=== PATIENT | female | born 1950 | race Hispanic/Latino ===

== ENCOUNTER 2017-07-15 23:13 | Observation (INO) | payer SELFPAY ==
[2017-07-16 00:20] VITALS: BMI 38.0
[2017-07-16] MEDS ORDERED: Ondansetron ODT 4 MG TAB PO PRN (00:58)
[2017-07-16] MEDS ORDERED: Nitroglycerin 0.4 MG TAB (25 Tab Bottle) PO PRN (01:01)
[2017-07-16] MEDS ORDERED: HumaLOG 300 UNITS/3 ML VIAL SC PRN (01:08)
[2017-07-16] MEDS ORDERED: Dextrose 50% Abboject 50 ML SYRINGE SLOW IVP PRN (01:08)
[2017-07-16] MEDS ORDERED: Dextrose 5% in Water 1,000 ML IV PRN (01:08)
[2017-07-16] MEDS ORDERED: Aspirin 325 MG TAB PO SCH ×2 (02:00→08:00)
[2017-07-16] MEDS ORDERED: Amoxicillin/Potassium Clav 875 MG TAB PO SCH ×2 (02:00→09:00)
[2017-07-16 02:27] LABS: Troponin I Less than 0.010 ng/mL (< 0.028)
[2017-07-16] MEDS: Acetaminophen 325 MG TAB PO PRN ×2 (04:15→12:52)
[2017-07-16 05:28] LABS: #Eosinphils 0.4 thou/uL (0.0-0.7); #Lymphocytes 1.5 thou/uL (1.20-3.40); #Monocytes 0.7 thou/uL (0.11-0.59); #Neutrophils 5.6 thou/uL (1.40-6.50); %Basophils 0.2 % (0.0-1.0); %Eosinophils 5.1 % (0.0-10.0); %Lymphocytes 18.6 % (21.0-51.0); %Monocytes 8.1 % (0.0-10.0); Hemoglobin 11.9 g/dL (12.0-16.0); Mean Corpuscular HGB CONC 32.2 g/dL (32.0-36.0); Mean Corpuscular Hemoglobin 27.6 pg (27.0-31.0); Mean Corpuscular Volume 85.5 fl (81.0-99.0); Mean Platelet Volume 7.6 fL (7.4-10.4); Platelet Count 232 thou/uL (130-400); RBC Distribution Width 13.2 % (11.5-14.5); Red Blood Cell (RBC) Count 4.32 mill/uL (4.20-5.40); White Blood Cell (WBC) Count 8.3 thou/uL (4.8-10.8)
[2017-07-16 05:57] LABS: Anion Gap 10 mmol/L (10-20); BUN (Urea Nitrogen) 10 mg/dL (9.8-20.1); Calc. Creatinine Clearance 109 mL/min (70-130); Calcium 9.1 mg/dL (7.8-10.44); Carbon Dioxide 29 mmol/L (23-31); Cardiac Risk 2.9 (Less than 4.5); Chloride 103 mmol/L (98-107); Cholesterol 98 mg/dl (< 200 Desired); Estimated GFR-MDRD 74; Glucose 126 mg/dL (80-115); HDL Cholesterol 34 mg/dL (>60 Neg Risk); LDL Cholesterol, Calculated 41 mg/dL; Magnesium 1.8 mg/dL (1.6-2.6); Phosphorus 3.3 mg/dL (2.3-4.7); Potassium 3.7 mmol/L (3.5-5.1); Sodium 138 mmol/L (136-145); Triglycerides 114 mg/dL (Less than 150)
--- NOTE | 2017-07-16 06:34 | HP-2 ---
CODE STATUS: FULL. PRIMARY CARE PHYSICIAN: Farheen gotti. ATTENDING: Dr. Lidia Arce RESIDENT: Dr. Leyla Neal CHIEF COMPLAINT: Chest pain. HISTORY OF PRESENT ILLNESS: This is a 66-year-old female that presented to an outside ED with the complaint of chest pressure located over the left chest and radiating up into the jaw which has worsened throughout the day. The patient endorses associated nausea without emesis. Additionally, the patient has had cough, congestion, and sinus pressure for the past week. These symptoms have worsened over that time. The patient states that the pain in the chest is persistent, but she did experience some relief with nitroglycerin. The patient denies palpitations, edema, shortness of breath, or diaphoresis. Additionally, the patient states that the chest pain is worsened with cough. In the ED, the patient was given nitroglycerin sublingual. PAST MEDICAL HISTORY: 1. Hypertension. 2. Hyperlipidemia. 3. Diabetes mellitus type 2. 4. Arthritis. PAST SURGICAL HISTORY: 1. Cholecystectomy. 2. Breast reduction. 3. D&C. ALLERGIES: No known drug allergies. MEDICATIONS: 1. Aspirin 325 mg p.o. daily. 2. Clonidine 0.1 mg p.o. p.r.n. 3. Citalopram oxalate 10 mg p.o. daily. 4. Lorazepam 0.5 mg p.o. p.r.n. 5. Metformin 500 mg b.i.d. 6. Nortriptyline 10 mg p.o. daily. 7. Ramipril 10 mg p.o. daily. 8. Rosuvastatin calcium 20 mg p.o. daily. FAMILY HISTORY: Noncontributory. SOCIAL HISTORY: The patient was a former smoker. She states that she smoked socially, but quit 40 years ago. She denies any alcohol or drug use. REVIEW OF SYSTEMS: Twelve point review of systems was performed and all are negative except as listed in the HPI and as indicated below. The patient endorses chills, night sweats and fatigue over the last week. Of note, the patient is from [place] and since arriving to the on 05/19/2017, she has noted an unprovoked weight loss from 240 pounds to 214 pounds. Additionally, she has had some trouble sleeping due to her recent congestion. The patient endorses a cough and some associated shortness of breath. Additionally, she has chest pain which is worsened with cough, particularly in the left ribs. The patient has had some nausea, but no associated vomiting. She had one episode of diarrhea. The patient has diffuse musculoskeletal pain secondary to arthritis. Additionally, she does endorse a history of anxiety and depression. PHYSICAL EXAMINATION: VITAL SIGNS: Blood pressure 132/82, pulse 90, respiratory rate 17, pulse ox 96 % on room air. Current weight 100 kilograms. GENERAL: The patient is alert and oriented x3, no acute distress, well- developed, well-nourished, obese, appropriately interactive. EYES: Pupils equally round, reactive to light and accommodation. Extraocular muscle intact. Conjunctivae within normal limits. ENT: Nasal mucosa within normal limits. Oropharynx within normal limits. The patient does have tenderness over the maxillary and frontal sinuses. NECK: Supple, without lymphadenopathy or thyromegaly. CARDIOVASCULAR: Regular rate and rhythm. No murmurs or gallops. Radial and pedal pulses 2+. RESPIRATORY: Normal effort, no retractions, clear to auscultation bilaterally. SKIN: Warm and dry. No cyanosis or lesion. ABDOMEN: Soft, tender in the left upper quadrant. Bowel sounds are positive in all 4 quadrants. No mass or distention. EXTREMITIES: No clubbing, cyanosis or edema. MUSCULOSKELETAL: Structure within normal limits. Tone within normal limits. The patient has full range of motion. The patient was tender to palpation of her left rib cage. NEUROLOGIC: No focal deficits. Sensation within normal limits. Cranial nerves II-XII intact. GCS 15. PSYCHIATRIC: Appropriate. LABORATORY DATA: Laboratory findings obtained from outside ER did show negative influenza A and B. Troponin was negative. EKG showed normal sinus rhythm. ASSESSMENT AND PLAN: This is a 66-year-old female with past medical history of hypertension, hyperlipidemia, diabetes mellitus type 2, who presents with chest pain. 1. Atypical chest pain. The patient has several risk factors that warrant further workup. Her heart score is approximately 4 based on risk factors and age. The pain is reproducible. We will plan to stress the patient in the a.m. Fasting lipid panel, magnesium, phosphate and BMP are pending. We will continue to trend troponin. Of note, this could be secondary to musculoskeletal tenderness from coughing associated with viral illness/ sinusitis. 2. Acute bacterial sinusitis. The patient has been symptomatic for greater than a week with associated maxillary and frontal sinus tenderness. We will start the patient on Augmentin 875 mg p.o. b.i.d. x7 days. Will have fluticasone nasal spray for patient to use to help with symptoms. Also, recommend nasal irrigation per patient preference. 3. Hypertension. We will continue home medications. 4. Hyperlipidemia. Continue home medications. 5. Diabetes mellitus type 2. The patient will be placed in the hospital with sliding scale insulin. We will hold metformin until patient is done with nuclear stress test, restart after that time. 6. Anxiety. The patient has lorazepam p.r.n. for anxiety. 7. Deep venous thrombosis prophylaxis, SCDs. DISPOSITION/LENGTH OF HOSPITAL STAY: 1 day. Symptomatic medications will be provided. History and physical exam as well as management discussed with Dr. Lidia Arce. TOMÁS
[2017-07-16] MEDS ORDERED: Fluticasone Propionate Nasal Spray 16 gm Bottle NASAL SCH (09:00)
[2017-07-16] MEDS ORDERED: Ramipril 5 MG CAP PO SCH (09:00)
[2017-07-16] MEDS ORDERED: cloNIDine 0.1 MG TAB PO SCH (09:00)
[2017-07-16] MEDS ORDERED: Escitalopram Oxalate 10 mg Tablet PO SCH (09:00)
[2017-07-16 10:48] VITALS: TEMP 98.2
[2017-07-16 12:51] VITALS: BP 127/68
--- NOTE | 2017-07-16 13:23 | NM ---
NUCLEAR MEDICINE MYOCARDIAL PERFUSION EVALUATION: CLINICAL HISTORY: 66-year-old female with chest pain. Reference stress EKG portion of the exam through the division of cardiology for further details. RADIOPHARMACEUTICAL: 31 mCi technetium-99m sestamibi IV. FINDINGS: Stress imaging performed, which reveals no significant perfusion defect of the left ventricular gonzalez . Gated imaging performed, which reveals wall motion and contractility with calculated LVEF at 60%. IMPRESSION: 1. Normal stress myocardial perfusion, without evidence of ischemia or scar. 2. Normal left ventricular systolic function. POS: RUMA
[2017-07-16] MEDS ORDERED: ADENOSINE 60 MG/20 ML VIAL ONE (13:30)
--- NOTE | 2017-07-17 12:25 | DIS-2 ---
DATE OF ADMISSION: 07/16/2017 DATE OF DISCHARGE: 07/16/2017 ADMITTING ATTENDING: Dr. Veronica Perez. DISCHARGE ATTENDING: Dr. Lidia Arce. RESIDENT: Dr. Reuben Salazar. CONSULTS: None. PROCEDURES: Nuclear stress test. Impression: Normal stress myocardial perfusion without evidence o f acute ischemia or scar. Normal left ventricular systolic function. Left ventricular ejection frac tion at 60%. PRIMARY DIAGNOSIS: Atypical chest pain, likely from costochondritis. SECONDARY DIAGNOSES: 1. Acute bacterial sinusitis. 2. Hypertension. 3. Hyperlipidemia. 4. Diabetes, type 2. 5. Anxiety. DISCHARGE MEDICATIONS: 1. Augmentin 875 mg every 12 hours. 2. Tessalon Perles 100 mg p.o. t.i.d. as needed. 3. Metformin 1000 mg b.i.d. 4. Clonidine 0.1 mg p.o. daily. 5. Lorazepam 0.5 mg p.o. daily as needed. 6. Ramipril 10 mg p.o. daily. 7. Aspirin 325 mg p.o. daily. 8. Crestor 20 mg p.o. daily. 9. Lexapro 10 mg p.o. daily. 10. Nortriptyline 10 mg p.o. daily. HISTORY OF PRESENT ILLNESS AND HOSPITAL COURSE: This is a 66-year-old female who presents to an [facility] ED and then transferred to [facility] with complaints of chest pain located ove r the left chest and radiating into the jaw that has been worsened for the past 2 days. She associat es it with nausea without emesis. She says that she has been having cough, cold, and congestion for about 7 weeks now and that has worsened in the past week. She states that her pain in her chest is p ersistent, but is worse with coughing and was worse with palpation over her chest wall, reproducing t he same type of pain. She was admitted for cardiac workup. Her troponins were negative x3. Chest x -ray did not find any abnormalities. Flu swabs were negative. EKG showed normal sinus rhythm. She received a cardiac stress test. The results of that are as above. In light of the normal test resul ts, her long history of cold, cough, and congestion, and with pain worsening with cough and reproduci ble with palpation, her chest pain is likely due to costochondritis from coughing. She was prescribe kavin Barclay for that, and as her cold symptom has been going on for over 2 weeks, she was presc ribed Augmentin for possible sinusitis. On day of discharge, the patient was not having any other symptoms. DISPOSITION: Stable. DISCHARGE INSTRUCTIONS: 1. Location: To home. 2. Diet: Heart healthy diabetic diet. 3. Activity: As tolerated. 4. Followup: Follow up with the patient's PCP back in [place].
--- NOTE | 2017-07-24 12:46 | STRESS ---
Acquisition Time: 2017-07-16 10:56:46 Total Exercise Time: 00:04:00 Test Indications: CHEST PAIN Medications: Protocol: ADENOSINE Max HR: 115 BPM 74% of Pred: 154 BPM Max BP: 120/076 mmHG Max Work Load: 1.0 METS RESTING ECG: NORMAL SINUS RHYTHM AT 90 BPM WITH PAC'S SYMPTOMS: CHEST PAIN; DYSPNEA ON EXERTION NORMAL BP RESPONSE ECTOPY: NONE ECG STRESS: NO SIGNIFICANT CHANGES INTERPRETATION: AWAIT NUCLEAR IMAGES FOR DEFINITIVE DIAGNOSIS Confirmed by ZOE LOUIE ([id number]), retail sales associate seasonal MICHELL SOTO ([id number]) on 07/24/2017 12:45:49 PM Referred By: Gissell JIMENEZ Confirmed By:ZOE LOUIE
== END 2017-07-16 16:01 | disposition home or self-care (01) ==
LOC: 2NO 23:13 → INTOOBSV 23:13
PROVIDERS: ADMIT Family Medicine; ATTEND Family Medicine
DX: R07.89 Other chest pain (principal); B96.89 Other specified bacterial agents as the cause of diseases classified elsewhere; I10 Essential (primary) hypertension; E78.5 Hyperlipidemia, unspecified; E11.9 Type 2 diabetes mellitus without complications; F41.9 Anxiety disorder, unspecified; R11.0 Nausea; M19.90 Unspecified osteoarthritis, unspecified site; J01.00 Acute maxillary sinusitis, unspecified; J01.10 Acute frontal sinusitis, unspecified; Z79.84 Long term (current) use of oral hypoglycemic drugs; Z79.82 Long term (current) use of aspirin; Z79.899 Other long term (current) drug therapy; Z90.49 Acquired absence of other specified parts of digestive tract; Z98.890 Other specified postprocedural states; Z87.891 Personal history of nicotine dependence
CPT/HCPCS: 36415; 36416; 78452; 80048; 80061; 83735; 84100; 84443; 84484; 85025; 90471; 90732; 93017; 94760; A9500; G0009; G0378; J0153

== ENCOUNTER 2018-05-15 18:01 | Emergency (ER) | payer SELFPAY ==
[2018-05-15] MEDS ORDERED: Ibuprofen 200 MG TAB ONE (18:57)
[2018-05-15] MEDS ORDERED: Acetaminophen 325 MG TAB ONE (19:17)
== END 2018-05-15 19:39 | disposition home or self-care (01) ==
LOC: ERS 18:01
DX: S16.1XXA Strain of muscle, fascia and tendon at neck level, initial encounter (principal); I10 Essential (primary) hypertension; E11.9 Type 2 diabetes mellitus without complications; F41.9 Anxiety disorder, unspecified; F32.9 Major depressive disorder, single episode, unspecified; V43.62XA Car passenger injured in collision with other type car in traffic accident, initial encounter
CPT/HCPCS: 99283

== ENCOUNTER 2022-04-03 16:51 | Emergency (ER) | payer SELFPAY ==
[~2022-04-03 16:51] MED LIST: Iopamidol-370 76% 500 ML 1 ML ONE
[2022-04-03 17:34] LABS: #Basophils 0.1 thou/uL (0.0-0.2); #Eosinphils 0.6 thou/uL (0.0-0.7); #Lymphocytes 1.6 thou/uL (1.20-3.40); #Monocytes 0.5 thou/uL (0.11-0.59); #Neutrophils 6.1 thou/uL (1.40-6.50); %Basophils 0.6 % (0.0-1.0); %Eosinophils 7.2 % (0.0-10.0); %Lymphocytes 17.7 % (21.0-51.0); %Monocytes 5.1 % (0.0-10.0); %Neutrophils 69.4 % (42.0-75.0); Hemoglobin 13.6 g/dL (12.0-16.0); Mean Corpuscular HGB CONC 32.9 g/dL (32.0-36.0); Mean Corpuscular Hemoglobin 28.7 pg (27.0-31.0); Mean Platelet Volume 7.4 fL (7.4-10.4); Platelet Count 283 thou/uL (130-400); RBC Distribution Width 12.8 % (11.5-14.5); Red Blood Cell (RBC) Count 4.74 mill/uL (4.20-5.40); White Blood Cell (WBC) Count 8.8 thou/uL (4.8-10.8)
[2022-04-03 18:02] LABS: ALT (SGPT) 12 U/L (8-55); AST (SGOT) 12 U/L (5-34); Albumin 4.4 g/dL (3.4-4.8); Alkaline Phosphatase 76 U/L (40-110); Anion Gap 16 mmol/L (10-20); BUN (Urea Nitrogen) 14 mg/dL (9.8-20.1); Bilirubin, Total 0.6 mg/dL (0.2-1.2); Calc. Creatinine Clearance 0 mL/min (70-130); Calcium 9.3 mg/dL (7.8-10.44); Carbon Dioxide 20 mmol/L (23-31); Chloride 104 mmol/L (98-107); Estimated GFR 95; Globulin 2.8 g/dL (2.4-3.5); Glucose 121 mg/dL (83-110); Lipase 27 U/L (8-78); Potassium 4.2 mmol/L (3.5-5.1); Protein, Total 7.2 g/dL (5.8-8.1); Sodium 136 mmol/L (136-145)
[2022-04-03] MEDS ORDERED: Lidocaine Viscous Sol 2% 15 ml UD Cup ONE (20:15)
[2022-04-03] MEDS ORDERED: Milk Of Magnesia 30 ML UDCUP ONE (20:15)
[2022-04-03] MEDS ORDERED: Mag-Al 1200 mg/1200 mg/30 ML UDCUP ONE (20:16)
[2022-04-03] MEDS ORDERED: Acetaminophen 500 MG TAB ONE (21:09)
== END 2022-04-03 22:24 | disposition home or self-care (01) ==
LOC: ERS 16:51
DX: N28.89 Other specified disorders of kidney and ureter (principal); E11.9 Type 2 diabetes mellitus without complications; I10 Essential (primary) hypertension
CPT/HCPCS: 36415; 74177; 80053; 83690; 84484; 85025; 93005; Q9967

== ENCOUNTER 2022-07-30 02:14 | Emergency (ER) | payer SELFPAY ==
[2022-07-30] MEDS ORDERED: Aspirin Chewable 81 MG TAB ONE (02:50)
[2022-07-30] MEDS ORDERED: LORazepam 2 MG/ML SYR.(CARPUJECT) ONE (03:01)
[2022-07-30] MEDS ORDERED: Ketorolac Tromethamine 30 MG/ML VIAL ONE (03:01)
[2022-07-30 03:14] LABS: #Basophils 0.1 thou/uL (0.0-0.2); #Eosinphils 1.1 thou/uL (0.0-0.7); #Lymphocytes 2.1 thou/uL (1.20-3.40); #Monocytes 0.5 thou/uL (0.11-0.59); #Neutrophils 5.6 thou/uL (1.40-6.50); %Basophils 0.9 % (0.0-1.0); %Monocytes 5.3 % (0.0-10.0); %Neutrophils 59.8 % (42.0-75.0); Hemoglobin 12.7 g/dL (12.0-16.0); Mean Corpuscular Hemoglobin 28.8 pg (27.0-31.0); Mean Corpuscular Volume 87.2 fl (78.0-98.0); Mean Platelet Volume 7.7 fL (7.4-10.4); Platelet Count 265 10x3/uL (130-400); RBC Distribution Width 12.6 % (11.5-14.5); Red Blood Cell (RBC) Count 4.43 mill/uL (4.20-5.40); White Blood Cell (WBC) Count 9.4 10x3/uL (4.8-10.8)
[2022-07-30 03:37] LABS: ALT (SGPT) Less than 7 U/L (8-55); AST (SGOT) 12 U/L (5-34); Albumin 3.9 g/dL (3.4-4.8); Alkaline Phosphatase 62 U/L (40-110); Anion Gap 12 mmol/L (10-20); BUN (Urea Nitrogen) 15 mg/dL (9.8-20.1); Bilirubin, Total 0.2 mg/dL (0.2-1.2); Calc. Creatinine Clearance 0 mL/min (70-130); Calcium 9.4 mg/dL (7.8-10.44); Carbon Dioxide 25 mmol/L (23-31); Chloride 104 mmol/L (98-107); Estimated GFR 92; Globulin 2.9 g/dL (2.4-3.5); Glucose 122 mg/dL (83-110); Lipase 40 U/L (8-78); Potassium 4.2 mmol/L (3.5-5.1); Protein, Total 6.8 g/dL (5.8-8.1); Sodium 137 mmol/L (136-145)
[2022-07-30 04:20] LABS: Bacteria/HPF None Seen HPF (None Seen); Bilirubin Negative (Negative); Blood, Urine Negative (Negative); Clarity Clear (Clear); Glucose, Urine (Dipstick) Normal (Negative); Ketone, Urine Negative (Negative); Leukocyte 250 Leu/uL (Negative); Nitrite Negative (Negative); Protein, Urine (Dipstick) Negative (Neg-Trace); RBC/HPF None Seen HPF (0-3); Specific Gravity, Urine 1.007 (1.002-1.036); Squamous Epithelial None Seen HPF (0-3); Urobilinogen Normal mg/dL (Less than 2); WBC/HPF 0-3 HPF (0-3)
[2022-07-30 05:45] LABS: Troponin I Less than 0.010 ng/mL (< 0.028)
== END 2022-07-30 07:12 | disposition home or self-care (01) ==
LOC: ERS 02:14
DX: R07.89 Other chest pain (principal); I10 Essential (primary) hypertension; E11.9 Type 2 diabetes mellitus without complications; Z79.82 Long term (current) use of aspirin; Z79.84 Long term (current) use of oral hypoglycemic drugs; Z79.899 Other long term (current) drug therapy
CPT/HCPCS: 36415; 71045; 80053; 81003; 81015; 83690; 83880; 84484; 85025; 93005; 96374; 96375; J1885; J2060

== ENCOUNTER 2023-03-20 12:21 | Inpatient (IN) | payer MEDICAID, SELFPAY ==
[2023-03-20 13:58] LABS: #Basophils 0.1 thou/uL (0.0-0.2); #Eosinphils 0.8 thou/uL (0.0-0.7); #Monocytes 0.5 thou/uL (0.11-0.59); #Neutrophils 4.7 thou/uL (1.40-6.50); %Basophils 1.1 % (0.0-1.0); %Eosinophils 10.3 % (0.0-10.0); %Lymphocytes 22.8 % (21.0-51.0); %Monocytes 6.4 % (0.0-10.0); %Neutrophils 59.1 % (42.0-75.0); Hematocrit 39.5 % (36.0-47.0); Hemoglobin 12.7 g/dL (12.0-16.0); Mean Corpuscular HGB CONC 32.2 g/dL (32.0-36.0); Mean Platelet Volume 9.8 fL (7.4-10.4); Platelet Count 268 10x3/uL (130-400); RBC Distribution Width 14.1 % (11.5-14.5)
[2023-03-20 14:07] LABS: Bacteria/HPF None Seen HPF (None Seen); Bilirubin Negative (Negative); Blood, Urine Negative (Negative); CAUTI Indications for Culture Pelvic or flank pain; Clarity Clear (Clear); Glucose, Urine (Dipstick) Normal (Negative); Ketone, Urine Negative (Negative); Leukocyte 75 Leu/uL (Negative); Nitrite Negative (Negative); Protein, Urine (Dipstick) Negative (Neg-Trace); RBC/HPF 0-3 HPF (0-3); Specific Gravity, Urine 1.023 (1.002-1.036); Squamous Epithelial 0-3 HPF (0-3); Urobilinogen Normal mg/dL (Less than 2); WBC/HPF 0-3 HPF (0-3)
[2023-03-20 14:14] LABS: Urine Culture Reflex No No
[2023-03-20 14:25] LABS: ALT (SGPT) 12 U/L (8-55); AST (SGOT) 14 U/L (5-34); Albumin 4.1 g/dL (3.4-4.8); Alkaline Phosphatase 74 U/L (40-110); Anion Gap 12 mmol/L (10-20); BUN (Urea Nitrogen) 18 mg/dL (9.8-20.1); Bilirubin, Total 0.3 mg/dL (0.2-1.2); Calc. Creatinine Clearance 0 mL/min (70-130); Carbon Dioxide 26 mmol/L (23-31); Chloride 104 mmol/L (98-107); Estimated GFR 95; Glucose 134 mg/dL (83-110); Lipase 25 U/L (8-78); Potassium 4.3 mmol/L (3.5-5.1); Protein, Total 7.1 g/dL (5.8-8.1); Sodium 138 mmol/L (136-145)
[2023-03-20 14:29] LABS: Troponin I Less than 0.010 ng/mL (< 0.028)
[2023-03-20] MEDS ORDERED: Morphine 4 MG/ML VIAL ONE (15:15)
[2023-03-20] MEDS ORDERED: Orphenadrine Citrate 60 MG/2 ML VIAL ONE (15:47)
[2023-03-20] MEDS ORDERED: Acetaminophen 325 MG TAB PO PRN (18:38)
[2023-03-20] MEDS ORDERED: Ketorolac Tromethamine 30 MG/ML VIAL IVP SCH ×2 (18:45→23:59)
[2023-03-20] MEDS ORDERED: Cyclobenzaprine 10 MG TAB PO SCH (18:45)
[2023-03-20] MEDS ORDERED: Morphine 2 MG/ML VIAL SLOW IVP PRN (19:19)
[2023-03-20] MEDS: HYDROcodone/Acetaminophen 5/325 mg Tablet PO PRN (19:43)
[2023-03-20 23:45] VITALS: BMI 32.6
[2023-03-21] MEDS: HYDROcodone/Acetaminophen 5/325 mg Tablet PO PRN ×2 (00:10→11:43)
[2023-03-21] MEDS: Ketorolac Tromethamine 30 MG/ML VIAL IVP SCH ×4 (02:33→20:55)
[2023-03-21 07:09] LABS: #Basophils 0.1 thou/uL (0.0-0.2); #Eosinphils 0.9 thou/uL (0.0-0.7); #Monocytes 0.6 thou/uL (0.11-0.59); #Neutrophils 3.1 thou/uL (1.40-6.50); %Eosinophils 13.3 % (0.0-10.0); %Lymphocytes 30.6 % (21.0-51.0); %Monocytes 8.6 % (0.0-10.0); %Neutrophils 46.2 % (42.0-75.0); Hematocrit 37.5 % (36.0-47.0); Hemoglobin 11.9 g/dL (12.0-16.0); Mean Corpuscular HGB CONC 31.7 g/dL (32.0-36.0); Mean Corpuscular Hemoglobin 27.2 pg (27.0-31.0); Mean Corpuscular Volume 85.8 fl (78.0-98.0); Mean Platelet Volume 9.8 fL (7.4-10.4); Platelet Count 246 10x3/uL (130-400); RBC Distribution Width 14.4 % (11.5-14.5); Red Blood Cell (RBC) Count 4.37 mill/uL (4.20-5.40); White Blood Cell (WBC) Count 6.8 10x3/uL (4.8-10.8)
[2023-03-21 07:16] LABS: Hemoglobin A1c 6.4 % (4.0-6.0)
[2023-03-21 07:29] LABS: Anion Gap 14 mmol/L (10-20); BUN (Urea Nitrogen) 22 mg/dL (9.8-20.1); Calc. Creatinine Clearance 85 mL/min (70-130); Calcium 8.8 mg/dL (7.8-10.44); Carbon Dioxide 24 mmol/L (23-31); Chloride 104 mmol/L (98-107); Estimated GFR 76; Glucose 120 mg/dL (83-110); Potassium 4.1 mmol/L (3.5-5.1); Sodium 138 mmol/L (136-145)
[2023-03-21] MEDS: Cyclobenzaprine 10 MG TAB PO PRN (13:36)
[2023-03-22] MEDS: Ketorolac Tromethamine 30 MG/ML VIAL IVP SCH ×4 (02:17→20:06)
[2023-03-22] MEDS: HYDROcodone/Acetaminophen 5/325 mg Tablet PO PRN ×3 (11:55→21:33)
[2023-03-22] MEDS: Cyclobenzaprine 10 MG TAB PO PRN (14:04)
[2023-03-22 21:18] VITALS: BP 143/71; TEMP 98.2
== END 2023-03-22 21:53 | disposition home or self-care (01) | DRG 552 ==
LOC: ERS 12:21 → SJJU 17:50
PROVIDERS: ADMIT Family Medicine; ATTEND Internal Medicine
DX: M48.062 Spinal stenosis, lumbar region with neurogenic claudication (principal); M51.34 Other intervertebral disc degeneration, thoracic region; M51.16 Intervertebral disc disorders with radiculopathy, lumbar region; N28.9 Disorder of kidney and ureter, unspecified; E11.9 Type 2 diabetes mellitus without complications; I10 Essential (primary) hypertension; M19.90 Unspecified osteoarthritis, unspecified site; E78.5 Hyperlipidemia, unspecified; Z90.49 Acquired absence of other specified parts of digestive tract; Z79.84 Long term (current) use of oral hypoglycemic drugs; Z79.82 Long term (current) use of aspirin; Z79.899 Other long term (current) drug therapy; Z98.890 Other specified postprocedural states; Z87.891 Personal history of nicotine dependence
CPT/HCPCS: 36415; 71045; 72146; 72148; 75635; 80048; 80053; 81001; 83036; 83605; 83690; 84484; 85025; 85652; 86140; 87040; 93005; 96372; J1885; J2270; J2272; J2360